=== PATIENT | female | born 1995 | race Two or more races ===

== ENCOUNTER 2024-11-01 16:19 | Emergency (ER) | payer MEDICAID, OTHER ==
[~2024-11-01] VITALS: Ht 157.5 cm; Wt 58.0 kg
[2024-11-01 18:43] VITALS: TEMP 98
[2024-11-01 18:54] VITALS: BP 120/75; PULSE 71; RESP 18; O2SAT 98
--- NOTE | 2024-11-01 19:02 | ED.PDOC ---
History of Present Illness(SKN HPI Comments PT CAME IN WITH A CC OF ABSCESS TO RIGHT BREAST X 3 DAYS THAT IS DRAINING RED TINGED FLIUD. PATIENT STATES SYMPTOMS STARTED 7 YEARS AGO AFTER GIVING SHE DID SEE THE OBGYN AND STATED NOT TO WORRY ABOUT IT. HOWEVER SHE STATES OVER THE PAST 3 DAYS IT STARTED TO GET INFLAMED AND NOW LIQUIDY BLOODY FLUID IS DRAINING. DENIES FEVER, CHILLS, NAUSEA OR VOMITING DENIES ANY KNOWN INJURY. Chief Complaint: Abscess Time Seen by MD: 18:19 History of Present Illness: Nurses Notes, Medications, Allergies Allergies: Coded Allergies: NO KNOWN ALLERGIES (Unverified , 11/01/24) Home Meds Active Scripts Doxycycline Hyclate (Doxycycline Hyclate) 100 Mg Cap, 100 MG PO BID for 7 Days, #14 CAP Prov:MILLIE DUPREE YAMIL 11/01/24 Information Source: Patient Mode of Arrival: Ambulatory Constitutional: denies: chills, diaphoresis, fatigue, fever, malaise, sweats, weakness, others EENTM: denies: blurred vision, double vision, ear bleeding, ear discharge, ear drainage, ear pain, ear ringing, eye pain, eye redness, hearing loss, mouth pain, mouth swelling, nasal discharge, nose bleeding, nose congestion, nose pain, photophobia, tearing, throat pain, throat swelling, voice changes, others Respiratory: denies: cough, hemoptysis, orthopnea, SOB at rest, shortness of breath, SOB with excertion, stridor, wheezing, others Cardiovascular: denies: chest pain, dizzy spells, diaphoresis, Dyspnea on exertion, edema, irregular heart beat, left arm pain, lightheadedness, pal pitations, PND, syncope, others Gastrointestinal: denies: abdomen distended, abdominal pain, blood streaked bowels, constipated, diarrhea, dysphagia, difficulty swallowing, hematemesis, melena, nausea, poor appetite, poor fluid intake, rectal bleeding, rectal pain, vomiting, others Genitourinary: denies: abnormal vagina bleeding, burning, dyspareunia, dysuria, flank pain, frequency, hematuria, incontinence, pain, , vagina discharge, urgency, others Neurological: denies: dizziness, fainting, headache, left sided numbness, left sided weakness, numbness, paresthesia, pre-existing deficit, right sided numbness, right sided weakness, seizure, speech problems, tingling, tremors, weakness, others Musculoskeletal: denies: back pain, gout, joint pain, joint swelling, muscle pain, muscle stiffness, neck pain, others Integumetry: denies: bruises, change in color, change in hair/nails, dryness, laceration, lesions, lumps, rash, wounds, others Allergic/Immunocompromised: denies: Difficulty Healing, Frequent Infections, Hives, Itching, others Hematologic/Lymphatic: denies: anemia, blood clots, easy bleeding, easy b ruising, swollen glands, others Endocrine: denies: excessive hunger, excessive sweating, excessive thirst, excessive urination, flushing, intolerance to cold, intolerance to heat, unexplained weight gain, unexplained weight loss, others Psychiatric: denies: anxiety, bipolar disorder, depression, hopeless, panic disorder, schizophrenia, sleepless, suicidal, others Physical Exam General Appearance: No Apparent Distress, Normal HEENT: Pharynx Normal Neck: Full Range of Motion, Non-Tender, Normal Respiratory: Lungs Clear, No Respiratory Distress, Normal Breath Sounds Cardiovascular: No Murmur, Normal Peripheral Pulses, Regular Rate/Rhythm Breast Exam: Other (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 ENLARGED BREAST DUCT, TRACE BLEEDING CONTROLLED NO NOTED PURULENT DRAINAGE TENDERNESS ON PALPATION NOTED MASS PALPATED. ) Gastrointestinal: Non Tender, Soft Genitalia: Deferred Pelvic: Deferred Rectal: Deferred Extremities: Normal capillary refill, Normal inspection, Normal range of sam on, Non-tender, No pedal edema Musculoskeletal : Apperance: Normal Neurologic: Alert, manager cleaning II-XII nml as Tested, No Motor Deficits, Normal Affect, Normal Mood, No Sensory Deficits Cerebellar Function: Normal Reflexes: Normal Skin: Dry, Normal Color, Warm Lymphatic: No Adenopathy Was a procedure done? Was a procedure done?: No Differential Diagnosis (INTG) Differential Diagnosis: Cellulitis Differential Diagnosis: Abscess, Impetigo X-Ray, Labs, Meds, VS Vital Signs Date Time Temp Pulse Resp B/P (MAP) Pulse Ox O2 Delivery O2 Flow Rate FiO2 11/01/24 18:54 71 18 120/75 (90) 98 11/01/24 18:43 98.0 71 18 120/75 (90) 98 98.0 11/01/24 18:43 71 18 98 Room Air 11/01/24 17:51 97.5 78 16 121/76 (91 96 97.5 Current Medications Medications (Trade) Dose Ordered Sig/Darion Route Start Time Stop Time Status Last Admin Ceftriaxone Sodium (Rocephin) 1,000 mg ONCE ONCE IM 11/01/24 19:00 11/01/24 19:01 DC 11/01/24 19:03 X-Ray, Labs, Meds, VS Comment LIKELY INFECTED SCRIPT TRIAL OF DOXYCYCLINE TWICE DAILY X7 DAYS. ADVISED TAKE MEDICATIONS PRESCRIBED SIDE EFFECTS DISCUSSED. ADVISED HER TO FOLLOW UP WITH HER PCP 2-3 DAYS NECESSARY CONSIDER REFERRAL TO [facility]ER[facility] FOR REMOVAL BIOPSY. ADVISED ON ER RETURN PRECAUTIONS PATIENT INDICATES UNDERSTANDING AGREES WITH DISCHARGE PLAN OF CARE. 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
[2024-11-01] MEDS: cefTRIAXone SOD 1,000 MG VL IM ONE (19:03)
[2024-11-01] MEDS ORDERED: DOXY100C4 PO (19:06)
== END 2024-11-01 19:22 | disposition home or self-care (01) ==
LOC: ER 16:23
DX: N60.41 Mammary duct ectasia of right breast (principal)
CPT/HCPCS: 96372; 99283; J0696